=== PATIENT | female | born 1990 | race Caucasian/White ===

== ENCOUNTER 2019-11-24 18:27 | Emergency (ER) | payer MEDICAID ==
[~2019-11-24] VITALS: Ht 162.6 cm; Wt 80.0 kg
[2019-11-24 18:46] VITALS: BP 131/84
[2019-11-24] MEDS ORDERED: AZIT-63 PO (21:45)
[2019-11-24] MEDS ORDERED: acetaminophen 325mg tablet PO ONE (21:45)
[2019-11-24] MEDS ORDERED: benzonatate 100mg capsule PO ONE (21:45)
[2019-11-24] MEDS ORDERED: ibuprofen tablet 400 MG TABLET PO ONE (21:45)
[2019-11-24] MEDS ORDERED: azithromycin 250mg tablet PO ONE (21:45)
[2019-11-24] MEDS ORDERED: IBUP-1984 PO (21:45)
[2019-11-24] MEDS ORDERED: MICO45CR73 VG (21:45)
[2019-11-24] MEDS ORDERED: BENZ-16 PO (21:45)
[2019-11-24] MEDS ORDERED: ACET-1025 PO (21:45)
== END 2019-11-24 22:08 | disposition home or self-care (01) ==
LOC: ER 18:28
DX: B34.9 Viral infection, unspecified (principal); H92.03 Otalgia, bilateral; R50.9 Fever, unspecified; R05 Cough; R51 Headache; H83.02 Labyrinthitis, left ear; J45.909 Unspecified asthma, uncomplicated; Z88.5 Allergy status to narcotic agent; Z79.899 Other long term (current) drug therapy
CPT/HCPCS: 99284

== ENCOUNTER → 2020-03-19 | Emergency (ER) | payer MEDICAID ==
[~2020-03-19] VITALS: Ht 149.9 cm; Wt 61.3 kg
[~2020-03-19] MED LIST: MICO45CR73 VG
[2020-03-19 23:01] VITALS: BP 147/103
== END | disposition home or self-care (01) ==
LOC: ER 22:59
DX: F41.9 Anxiety disorder, unspecified (principal); E86.0 Dehydration; J45.909 Unspecified asthma, uncomplicated; Z88.5 Allergy status to narcotic agent; Z79.2 Long term (current) use of antibiotics
CPT/HCPCS: 99281

== ENCOUNTER 2020-03-30 14:58 | Emergency (ER) | payer MEDICAID ==
[~2020-03-30] VITALS: Ht 149.9 cm; Wt 60.0 kg
[2020-03-30 15:01] VITALS: BP 141/93
[2020-03-30] MEDS ORDERED: LACT1CAP65 PO (16:11)
[2020-03-30] MEDS ORDERED: DOXY100C77 PO (16:11)
[2020-03-30] MEDS ORDERED: IBUP-1985 PO (16:40)
== END 2020-03-30 16:52 | disposition home or self-care (01) ==
LOC: ER 14:59
DX: L02.31 Cutaneous abscess of buttock (principal); J45.909 Unspecified asthma, uncomplicated; Z88.5 Allergy status to narcotic agent; Z79.899 Other long term (current) drug therapy
CPT/HCPCS: 99283

== ENCOUNTER 2025-04-22 16:36 | Emergency (ER) | payer MEDICAID ==
[~2025-04-22] VITALS: Ht 149.9 cm; Wt 60.2 kg
[~2025-04-22 16:36] MED LIST changes: +IBUP-1985 PO; +LACT1CAP65 PO
[2025-04-22 16:40] VITALS: TEMP 97.7
--- NOTE | 2025-04-22 17:31 | Physician Documentation ---
History of Present Illness ~ Chief Complaint: Vaginal pain Stated Complaint: UTI, SWELLING Time Seen by MD: 16:50 Primary Medical Doctor: none HPI Patient presents to the emergency room with 1-2 weeks of vaginal pain on her left. Patient is sexually active and she reports that her partner does see other women. She had a recent STD test which was negative but did take some Di flucan for yeast infection. No fevers. Positive dysuria. She states she feels there may be a tampon left in. Medication Reconciliation Allergies: Coded Allergies: morphine (Verified Allergy, Unknown, 04/22/25) Scheduled Ibuprofen (Ibuprofen), 1 TAB PO Q8H Ibuprofen (Ibuprofen), 1 TAB PO Q8H Lactobacillus Acidophilus (Probiotic), 1 CAP PO Q8H Miconazole Nitrate (Monistat 7), 1 APPLICATOR VG HS Miconazole Nitrate (Monistat 7), 1 APPLICATOR VG HS Past Medical History Past Medical History: Asthma Past Surgical History: noncontributory Alcohol Use: None Drug Use: none Lives with: Family Lives In: Home Review of Systems ROS All review of systems negative except as per HPI Physical Exam Vital Signs: Temperature: 97.7, Source: Temporal, Heart Rate: 111, Respiratory Rate: 20, BP: 136/89, Pulse Oximetry: 100, Weight: 60.250 Oxygen Flow Rate: 0 Physical Exam General: Patient is awake, alert, oriented x4 in no acute distress and well appearing.~ Head: Normocephalic and atraumatic. Eyes: Conjunctival normal. EOMI. PERRL. ENT: Mucous membranes moist. Neck: Supple, trachea is midline. Chest: Clear to auscultation bilaterally without rales, rhonchi, or wheezes. There is no accessory muscle use or retractions. Cardiac: RRR without murmurs, gallops, or rubs. Abd: Soft, nondistended, nontender, with normoactive bowel sounds. No guarding, rebound, or rigidity. : Negative chandelier sign, no appreciable erythema or swelling of vaginal canal or exterior vagina. No foul odor, no foreign body Progress Results/Orders Results/Orders Orders - SHAD ENGEL MD Chlam/Gc Amp Ur (04/22/25 16:51) Completed Orders - SHAD ENGEL MD Urinalysis, Cult If Indicated (04/22/25 16:51) Wet Prep (04/22/25 17:56) Vital Signs 04/22/25 04/22/25 16:40 17:27 Temp 97.7 Pulse 111 Resp 20 16 B/P (MAP) 136/89 Pulse Ox 100 O2 Flow Rate 0 Laboratory Tests Test 04/22/25 17:27 Urine Specimen Description Cln catch midstream Urine Color Yellow Urine Clarity Clear Urine pH 6.0 Urine Specific [place] 1.025 Urine Protein Negative Urine Glucose (UA) Negative Urine Ketones Negative Urine Occult Blood Negative Urine Nitrite Negative Urine Bilirubin Negative Urine Urobilinogen 0.2 Urine Leukocyte Esterase Negative Urine Culture Indicated Not ind Volume Urine Centrifuged 10 ml Urine Comment Microbiology Date/Time Source Procedure Growth Status 04/22/25 17:52 Genital Vaginal Wet Prep - Final Complete Medical Decision Making Findings Patient presents to the emergency room with vaginal complaints as per HPI. With two nurses at bedside vaginal exam was performed which showed some yeast but no other abnormality. The need to follow up with her OBGYN discussed Departure Disposition: 01 HOME / SELF CARE / HOMELESS Impression: Primary Impression: Vaginal candidiasis Additional Impression: Vaginal discomfort Condition: Stable Discharge Instructions: Vaginitis Referrals: NO PRIMARY CARE PROVIDER (PCP) Prescriptions Miconazole Nitrate (Monistat 7) 2 % Cream.appl 1 APPLICATOR VG HS for 7 Days, #45 GM 0 Refills Prov: SHAD ENGEL MD 04/22/25 Education Educated: Patient Educated regarding: diagnosis, treatment, need for follow up Signature Scribe Signature: No scribe Attestation: The note accurately reflects work and decisions made by me.Shad Engel MD 04/22/25 18:03 SHAD ENGEL MD Apr 22, 2025 17:31
[2025-04-22 18:07] LABS: LEUKOCYTE ESTERASE ,URINE NEGATIVE (Neg); NITRITES, URINE NEGATIVE (Neg); OCCULT BLOOD,URINE NEGATIVE (Neg)
[2025-04-22 18:13] LABS: UA COLLECTION TYPE CLN CATCH MIDSTREAM
[2025-04-22 18:29] VITALS: BP 123/65; PULSE 91; RESP 18; O2SAT 98
== END 2025-04-22 18:31 | disposition home or self-care (01) ==
LOC: ER 16:36
DX: B37.31 Acute candidiasis of vulva and vagina (principal); J45.909 Unspecified asthma, uncomplicated; Z88.5 Allergy status to narcotic agent; Z79.899 Other long term (current) drug therapy
CPT/HCPCS: 36415; 81003; 87210; 87491; 99283